=== PATIENT | male | born 1950 | race Caucasian/White ===

== ENCOUNTER 2016-11-21 10:23 | Emergency (ER) | payer BC, MEDICARE ==
--- NOTE | 2016-11-21 10:45 | ED Physician Chart ---
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 The cough is worse when he is lying down and better when he is sitting up. The patient thinks he may have been running a fever earlier this a.m. The patient has experienced orthopnea over the past week and mild respiratory distress. The cough is productive of greenish sputum and occasionally small specks of blood. The patient has had nasal congestion for the past week as well. He walks regularly and has not noticed any impairment of his exercise tolerance. The patient denies any chills, night sweats, diaphoresis or weight loss. Allergies:: Allergies Allergy/AdvReac Type Severity Reaction Status Date / Time No Known Allergies Allergy Verified 11/21/16 10:32 Historian:: Patient (vital signs reviewed by me.) Review of Systems - Review of Systems General/Constitutional: Fever, No chills, No weakness, No diaphoresis, No edema , No loss of appetite Skin: No skin lesions, No rash Head: No headache, No light-headedness Eyes: No loss of vision, No pain, No diplopia ENT: No earache, No sore throat, No tinnitus, Other (positive for nasal congestion. 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.) Neck: No neck pain, No swelling, No stiffness, Mass noted Cardio Vascular: No chest pain, No palpitations, PND, orthopnea, No edema Pulmonary: SOB, Cough, Sputum, No wheezing, Other (the patient's notes that he has loud snoring when he sleeps with periods of sleep apnea.) GI: No nausea, No vomiting, No diarrhea, No pain G/U: No dysuria, No frequency, No hematuria, No nacturia Musculoskeletal: No bone or joint pain, No back pain, No muscle pain Endocrine: No polyuria, No polydipsia Psychiatric: No prior psych history, No suicidal ideation Hematopoietic: No bruising, No lymphadenopathy Allergic/Immuno: No urticaria, No angioedema Neurological: No syncope, No focal symptoms, No weakness, No paresthesia, No headache, No seizure (no seizure activity prior to or while in the emergency department.), No dizziness, Other (patient has a seizure disorder and takes Tegretol and gabapentin.) Past Medical History - Past Medical History Past Medical History: Seizures Social History: Non Smoker, No Alcohol, No Drug Use, Employment:: Retired high school history teacher. Surgical History: CABG, Pacemaker, other (patient underwent right knee surgery when he tore a ligament in his teens. Patient also has had bilateral cataract surgery.) Family Medical History - Family Member Mother Hx Family Cancer: No Hx Family Hypertension: No Hx Family Diabetes: No Hx Family Dementia: No Hx Family AIDS: No Hx Family HIV: No Hx Family Psychiatric Problems: No Physical Exam - Physical Examination General/Constitutional: Awake, Well-developed, well-nourished, Alert, No distress, Non-toxic appearing, Ambulatory Eyes: Lids, conjuctiva normal, PERRL, EOMI Other Eyes comments:: Mild horizontal nystagmus with rightward gaze. Sclerae are nonjaundiced. Skin: No rash, No skin lesions, No ecchymosis, Well hydrated, No lymphadenopathy ENMT: External ears, nose nl, TM canals nl, Oropharynx nl, Tonsils nl Other ENMT comments:: There is mild edema of both the right and left nasal mucosa. No acute discharges. Neck: Nontender, Full ROM w/o pain, No JVD, No nuchal rigidity, No mass, No stridor Respiratory: Nl effort/Exclusion, Clear to Auscultation, No Wheeze/Rhonchi/Rales Other Respiratory comments:: The lungs are completely clear to auscultation. Patient's pacemaker can be palpated in the extreme lateral left chest. Cardio Vascular: RRR, No murmur, gallop, rubs, NL S1 S2 Other Cardio Vascular comments:: Patient has excellent pulses in all 4 extremities. Mechanical valve clicks are auscultated. No murmurs or gallops. GI: No tenderness/rebounding/guarding, No organomegaly, No hernia, Normal BS's, Nondistended, No mass/bruits, No McBurney tenderness Other GI comments:: Rectal examination deferred at my discretion. : No CVA tenderness, NL external genitalia, No discharge Extremities: No tenderness or effusion, Full ROM, normal strength in all extremities, No edema, Normal digits & nails Other Extremities comments:: No calf tenderness and Homans sign is negative. Neuro/Psych: Alert/oriented, DTR's symmetric, Normal sensory exam, Normal motor strength, Judgement/insight normal, Mood normal, Normal gait, No focal deficits Misc: Normal back, No paraspinal tenderness Other Misc comments:: No spinal tenderness. Labs/Radiology/EKG Results - Lab Results Results: Single view AP chest x-ray: Patient has mild cardiomegaly. No CHF. No areas of pulmonary infiltrate or consolidation. Pleural effusion. No pneumothorax. Impression: No acute cardiopulmonary findings. EKG: The patient has a paced atrial rhythm at a rate of 66. The QRS axis is normal. The QRS duration is normal. No QT prolongation. No ST segment elevation or depression. Nonspecific ST findings. Poor R-wave progression across the precordium suggestive of old anterior IL. Q wave in aVF suggestive of old inferior myocardial infarction. Impression: Abnormal EKG. Laboratory Tests 11/21/16 11/21/16 11/21/16 11:15 11:15 11:15 WBC RBC Hgb Hct MCV MCH MCHC Differential RDW Plt Count MPV Neutrophils % Lymphocytes % Monocytes % Eosinophils % Basophils % PT 25.2 H INR 2.32 H Sodium 137 Potassium 4.2 Chloride 100 Carbon Dioxide 26.7 Anion Gap 14.5 BUN 15 Creatinine 1.1 Est GFR ( Amer) > 60.0 Est GFR (Non-Af Amer) > 60.0 BUN/Creatinine Ratio 13.6 Glucose 97 Calcium 9.0 Troponin I 0.01 B-Natriuretic Peptide 89.8 11/21/16 11:15 WBC 8.7 RBC 3.90 Hgb 12.4 L Hct 36.7 L MCV 94.3 MCH 31.9 H MCHC Differential 33.9 RDW 12.5 Plt Count 187 MPV 8.3 Neutrophils % 77.7 Lymphocytes % 14.0 L Monocytes % 6.2 Eosinophils % 0.8 Basophils % 1.3 PT INR Sodium Potassium Chloride Carbon Dioxide Anion Gap BUN Creatinine Est GFR ( Amer) Est GFR (Non-Af Amer) BUN/Creatinine Ratio Glucose Calcium Troponin I B-Natriuretic Peptide CBC shows a normal white count and a very mild anemia. The INR is within the target range of 2.5. Both the troponin and BNP were within normal ranges. Renal function studies were normal. The electrolytes and serum glucose were all within normal parameters. Assessment - Assessment General Assessment: CASE SUMMARY: the 66-year-old male presents with a one-week history of cough productive of green sputum and occasionally small streaks of blood. He has both PND and orthopnea and mild edema in both lower extremities. His past medical history is positive for a CABG, valve replacement which was probably the mitral and pacemaker emplacement. The patient is on warfarin because the mechanical heart valve. Patient has never had any deep vein thrombosis or pulmonary embolism. The patient has no history of recent surgery, immobilization, or history of cancer. Using the Wells calculator he has a score of one which puts him at low risk for pulmonary embolism. On Physical examination the patient has clear lungs with no rows or rhonchi. Sequeira sign was negative and he has tenderness. In addition his INR was in the therapeutic range of 2.5. The white count is within normal parameters and the patient has mild anemia. Chest x-ray was negative for any areas of pulmonary infiltrate or consolidation. Patient does have mild cardiomegaly with no evidence for CHF. Patient also reports associated nasal congestion over the past week. Tentative diagnosis is off secondary to nasal congestion and URI. Patient was advised to obtain Flonase or Afrin nasal spray and to use it with Claritin to help reduce nasal congestion. He was further buys to follow up with this primary care physician on a routine basis for reevaluation and also for rechecking his elevated what pressure. He was advised to return to the emergency department if he had any significant worsening of symptoms, chest pain, grow some offices or severe respiratory distress. Discharged in stable condition. MDM DDX FOR COUGH: NOT PNEUMONIA Based on physical examination and chest x- ray. NOT Tuberculosis based on history and physical exam. LOW RISK For pulmonary embolism based on history, examination and the factories anticoagulated. ED Septic Shock - . Is Septic Shock (SBP<90, OR Lactate>4 mmol\L) present?: No Reassessment (Disposition) - Reassessment Reassessment Condition:: Unchanged - Diagnosis Diagnosis:: ALLERGIC RHINITIS with cough. History of coronary artery disease. Mild elevated blood pressure in the emergency department. The patient was advised to obtain Claritin and Flonase [id number]. Probable sleep apnea. ED Discharge Plan - Patient Disposition Admit/Discharge/Transfer: PT DISCHARGED HOME Condition at Disposition: Improved Instructions: Allergic Rhinitis
[2016-11-21 11:25] LABS: % BASOPHILS 1.3 % (0.0-2.0); % EOSINOPHILS 0.8 % (0.0-5.0); % MONOCYTES 6.2 % (2.0-10.0); % NEUTROPHILS 77.7 % (40.0-80.0); HEMATOCRIT 36.7 % (39.0-49.0); HEMOGLOBIN 12.4 gm/dL (12.6-17.4); MEAN CELL VOLUME 94.3 fl (80-99); MEAN CORPUSCULAR HEMOGLOBIN 31.9 pg (27.0-31.0); MEAN CORPUSCULAR HGB CONC 33.9 pg (28.0-36.0); MEAN PLATELET VOLUME 8.3 fl; NEUTROPHILE ABSOLUTE 6.8 Th/cmm (1.8-8.0); PLATELET COUNT 187 Th/cmm (150-400); RED CELL DISTRIBUTION WIDTH 12.5 % (11.5-20.0); WHITE BLOOD COUNT 8.7 Th/cmm (4.8-10.8)
[2016-11-21 11:38] LABS: INR 2.32 (0.5-1.4); PROTHROMBIN TIME (TEST) 25.2 SECONDS (9.5-11.5)
[2016-11-21 11:41] LABS: ANION GAP 14.5 (7.0-16.0); BUN - UREA NITROGEN 15 mg/dL (7-25); BUN/CREATININE RATIO 13.6; CARBON DIOXIDE 26.7 mEq/L (21.0-31.0); CHLORIDE 100 mEq/L (98-107); CREATININE - SERUM 1.1 mg/dL (0.7-1.3); GLUCOSE 97 mg/dL (70-105); POTASSIUM SERUM 4.2 mEq/L (3.5-5.1); SODIUM SERUM 137 mEq/L (136-145)
[2016-11-21 11:42] LABS: TROP I 0.01 ng/mL (0.01-0.05)
[2016-11-21 12:30] LABS: BNP 89.8 pg/mL (5.0-100.0)
--- NOTE | 2016-11-22 09:07 | Diagnostic Imaging Report ---
Portable chest x-ray HISTORY: Cough The heart is enlarged. Surgical clips and suture material noted over the heart. Cardiac electrode lead wires project over the right atrium and right ventricle. Prosthetic aortic valve noted. No focal pulmonary processes. IMPRESSION: 1. Cardiomegaly 2. No focal pulmonary processes 3. Surgical changes
== END 2016-11-21 12:43 | disposition home or self-care (01) ==
LOC: ER 10:23
DX: J30.9 Allergic rhinitis, unspecified (principal); R03.0 Elevated blood-pressure reading, without diagnosis of hypertension; I25.10 Atherosclerotic heart disease of native coronary artery without angina pectoris; Z95.1 Presence of aortocoronary bypass graft; Z95.0 Presence of cardiac pacemaker
CPT/HCPCS: 36415-UA; 71010-TC; 80048-TC; 83880-TC; 84484-TC; 85025-TC; 85610-TC; 93005